=== PATIENT | female | born 1945 | race Hispanic/Latino ===

== ENCOUNTER → 2022-06-25 | Day surgery (SDC) | payer MEDICARE ==
[2022-06-19 16:12] LABS: BASOPHILS % 0.6 % (0.0-1.0); EOSINOPHILS # (AUTO) 0.2 (0.0-0.4); EOSINOPHILS % 2.7 % (0.0-6.0); HEMATOCRIT 39.2 % (34.2-44.1); HEMOGLOBIN 12.7 g/dL (12.0-16.0); LYMPHOCYTES # (AUTO) 2.1 (1.0-3.2); LYMPHOCYTES % 32.4 % (18.0-39.1); MEAN CORPUSCULAR HEMOGLOBIN 31.2 pg (28-32); MEAN CORPUSCULAR HGB CONC 32.4 g/dL (31-35); MEAN CORPUSCULAR VOLUME 96.3 fL (81-99); MONOCYTES # (AUTO) 0.6 (0.2-0.8); MONOCYTES % 9.7 % (4.4-11.3); NEUTROPHILS # (AUTO) 3.6 (2.1-6.9); NEUTROPHILS % 54.4 % (38.7-80.0); PLATELET COUNT 240 x10e3/uL (140-360); RED BLOOD COUNT 4.07 x10e6/uL (3.6-5.1); RED CELL DISTRIBUTION WIDTH 13.2 % (11.7-14.4)
[~2022-06-25] MED LIST: AMLODIPINE BESYL5 MG PO; ATORVASTATIN CA20 MG PO; ENOXAPARIN40 MG/0.4 SC; ENOXAPARIN60 MG/0.6 SQ; GABAPENTIN600 MG PO; LEVOTHYROXINE75 MCG PO; LISINOPRIL10 MG PO; METOPROLOL SUCC25 MG PO; WARFARIN SODIUM3 MG PO
[2022-06-25 07:20] LABS: INR 0.98; PROTHROMBIN TIME 13.9 seconds (11.9-14.5)
[2022-06-25 07:21] LABS: PARTIAL THROMBOPLASTIN TIME 37.1 seconds (23.8-35.5)
[2022-06-25 08:57] VITALS: BP 131/67
== END | disposition home or self-care (01) ==
LOC: OR 05:53
PROVIDERS: ATTEND Internal Medicine Gastroenterology
DX: K92.1 Melena (principal); D12.0 Benign neoplasm of cecum; D12.5 Benign neoplasm of sigmoid colon; K57.30 Diverticulosis of large intestine without perforation or abscess without bleeding; K64.8 Other hemorrhoids; R10.32 Left lower quadrant pain; R00.1 Bradycardia, unspecified; E03.9 Hypothyroidism, unspecified; I69.398 Other sequelae of cerebral infarction; H53.9 Unspecified visual disturbance; I10 Essential (primary) hypertension; I25.10 Atherosclerotic heart disease of native coronary artery without angina pectoris; I25.2 Old myocardial infarction; E78.5 Hyperlipidemia, unspecified; Z01.810 Encounter for preprocedural cardiovascular examination; Z01.812 Encounter for preprocedural laboratory examination; Z79.01 Long term (current) use of anticoagulants; Z79.899 Other long term (current) drug therapy; Z95.5 Presence of coronary angioplasty implant and graft
CPT/HCPCS: 36415; 45384; 45385; 85025; 85610; 85730; 88305; 93005